=== PATIENT | female | born 1940 | race Caucasian/White ===

== ENCOUNTER 2025-03-12 12:46 | Emergency (ER) | payer MEDICARE, OTHER, SELFPAY ==
[2025-03-12 13:08] VITALS: BP 150/69; PULSE 64; RESP 17; TEMP 36.9; O2SAT 98; BMI 20.3
--- NOTE | 2025-03-12 14:15 | ED_ITS ---
HPI - Back Pain/Injury <Patricia Shen PA-C - Last Filed: 03/12/25 18:28> General Chief Complaint: Back Pain/Injury Stated Complaint: low back pain Time Seen by Provider: 03/12/25 13:21 Source: patient and other History of Present Illness HPI Narrative: 84-year-old female with no reported past medical history presents to the ED with several months of lower back pain. Patient states that the pain got exacerbated about a month ago when she was decorating the inside and outside of her house for Halloween. No trauma. Patient states that she has been lying in bed with a heating pad for relief. Patient states that when she is lying down, she is pain-free. Moving around it has been most painful for her. No fever, chills, chest pain, shortness of breath, vomiting, abdominal pain, dysuria, lightheadedness, dizziness, syncope. Patient does endorse anorexia for the last few days, states that she has been eating much lesser than normal. States that her appetite is very poor. Patient is accompanied by her neighbor, who states that patient does seem a little bit more confused than baseline over the last few days. Patient's neighbor does state that patient has had some cognitive decline and forgetfulness at baseline. Related Data Previous Rx's ?Medication ?Instructions ?Recorded cefpodoxime 200 mg tablet 200 mg PO BID 10 days #20 ta bs 03/12/25 cyclobenzaprine 10 mg tablet 10 mg PO TID PRN muscle s pasm #30 03/12/25 tabs Allergies Allergy/AdvReac Type Severity Reaction Status Date / Time iodine Allergy 30 years Verified 03/12/25 13:08 ago, doesn't remember Review of Systems <Patricia Shen PA-C - Last Filed: 03/12/25 18:28> Constitutional Constitutional: Denies chills, Denies fatigue, Denies fever(s), Denies frequent falls, Denies lethargy and Denies weakness Eyes Eyes: Denies change in vision, Denies eye discharge, Denies irritation and Denies loss of vision ENT Ears, Nose, Mouth, and Throat: Denies change in voice, Denies dizziness, Denies neck pain, Denies sore throat and Denies throat swelling Cardiovascular Cardiovascular: Denies chest pain, Denies irregular heart rhythm, Denies lightheadedness, Denies palpitations, Denies dyspnea, Denies dyspnea on exertion and Denies orthopnea Respiratory Respiratory: Denies cough, Denies dyspnea, Denies dyspnea on exertion and Denies wheezing Gastrointestinal Gastrointestinal: Denies abdominal pain, Denies change in bowel habits, Denies diarrhea, Denies nausea and Denies vomiting Musculoskeletal Musculoskeletal: Reports back pain, Denies neck pain and Denies numbness Integumentary/Breasts Skin/Breast: Denies pruritus, Denies erythema, Denies rash and Denies wounds Neurologic Neurologic: Denies behavioral changes, Denies confusion, Denies dizziness, Denies frequent falls, Denies loss of vision, Denies numbness and Denies weakness Psychiatric Psychiatric: Denies anxiety, Denies behavioral changes, Denies confusion, Denies depression, Denies homicidal ideation and Denies suicidal ideation Endocrine Endocrine: Denies fatigue, Denies flushing and Denies palpitations Hematologic/Lymphatic Hematologic/Lymphatic: Denies easy bruising Allergic/Immunologic Allergic/Immunologic: Denies urticaria, Denies throat swelling and Denies wheezing Patient History <Patricia Shen PA-C - Last Filed: 03/12/25 18:28> Social History Smoking Status: Never smoker Smoking Status: Never smoker Exam <Patricia Shen PA-C - Last Filed: 03/12/25 18:28> Narrative Exam Narrative: Const General:?cooperative, healthy appearing and comfortable [facility] Head:?normal to inspection Ears:?hearing grossly normal bilaterally Nose:?external nose normal Face and sinus:?normal facial exam and sinuses nontender Mouth:?oral mucosae normal Throat:?posterior oropharynx normal Eyes General:?appearance normal, both eyes and all related structures Neck Neck:?normal visual inspection and no lymphadenopathy noted Resp Effort & Inspection:?normal respiratory effort Auscultation:?clear to auscultation bilaterally Cardio Rate:?regular rate Rhythm:?regular rhythm Musculoskeletal No midline tenderness to palpation. No paraspinal tenderness to palpation. Gait is normal. Strength and sensation is intact. Neurovascularly intact. Neuro General:?patient alert, patient awake and patient oriented x3 Initial Vital Signs Initial Vital Signs: Vital Signs Temperature 98.5 F 03/12/25 13:08 Pulse Rate 64 03/12/25 13:08 Respiratory Rate 17 03/12/25 13:08 Blood Pressure 150/69 H 03/12/25 13:08 Pulse Oximetry 98 03/12/25 13:08 Oxygen Delivery Method Room Air 03/12/25 13:08 <Becki Martinez DO - Last Filed: 03/12/25 23:28> Initial Vital Signs Initial Vital Signs: Vital Signs Temperature 98.5 F 03/12/25 13:08 Pulse Rate 64 03/12/25 13:08 Respiratory Rate 17 03/12/25 13:08 Blood Pressure 150/69 H 03/12/25 13:08 Pulse Oximetry 98 03/12/25 13:08 Oxygen Delivery Method Room Air 03/12/25 13:08 Course <Patricia Shen PA-C - Last Filed: 03/12/25 18:28> Orders Ordered: ED Orders 03/12/25 14:44 XR lumbar spine 2-3V Stat XR sacrum coccyx min 2V Stat 03/12/25 15:47 CBC Auto Diff [Complete Blood Count AUTO DIFF] Stat CMP [Comprehensive Metabolic Panel] Stat Lipase Stat 03/12/25 17:10 Urinalysis and Microscopic Stat Urine Culture Stat 03/12/25 17:32 EKG-12 Lead Stat Vital Signs Vital signs: Vital Signs - 8 hr 03/12/25 17:26 03/12/25 18:56 Temperature 99.2 F Pulse Rate 58 L 66 Respiratory Rate 18 18 Blood Pressure 168/73 H 162/68 H Pulse Oximetry 97 98 Oxygen Delivery Method Room Air Room Air <Becki Martinez DO - Last Filed: 03/12/25 23:28> Orders Ordered: ED Orders 03/12/25 14:44 XR lumbar spine 2-3V Stat XR sacrum coccyx min 2V Stat 03/12/25 15:47 CBC Auto Diff [Complete Blood Count AUTO DIFF] Stat CMP [Comprehensive Metabolic Panel] Stat Lipase Stat 03/12/25 17:10 Urinalysis and Microscopic Stat Urine Culture Stat 03/12/25 17:32 EKG-12 Lead Stat Vital Signs Vital signs: Vital Signs - 8 hr 03/12/25 17:26 03/12/25 18:56 Temperature 99.2 F Pulse Rate 58 L 66 Respiratory Rate 18 18 Blood Pressure 168/73 H 162/68 H Pulse Oximetry 97 98 Oxygen Delivery Method Room Air Room Air MDM - Back Pain/Injury <Patricia hSen PA-C - Last Filed: 03/12/25 18:28> Lab Data 03/12/25 15:47 03/12/25 15:47 Labs: Lab Results 03/12/25 03/12/25 Range/Units 15:47 17:10 WBC 7.5 (4.5-11.0) X10^3/uL RBC 4.12 (4.0-5.2) X10^6/uL Hgb 12.3 (12.0-16.0) g/dL Hct 36.5 (36-46) % MCV 88.5 (80-100) fL MCH 29.8 (26-34) PG MCHC 33.6 (30-36) % RDW 13.6 (11.6-14.8) % Plt Count 231 (150-400) X10^3/uL Neut % (Auto) 73.6 (50-75) % Lymph % (Auto) 18.1 L (25-40) % [place] % (Auto) 7.1 (3-14) % Eos % (Auto) 0.8 L (2-4) % Baso % (Auto) 0.4 (0-2) % Neut # (Auto) 5500 (2450-4675) /uL Lymph # (Auto) 1400 (0961-3196) /uL [place] # (Auto) 500 (0-900) /uL Eos # (Auto) 100 (0-450) /uL Baso # (Auto) 0 (0-100) /uL Sodium 140 (137-145) mmol/L Potassium 4.2 (3.4-5.1) mmol/L Chloride 108 H (98-107) mmol/L Carbon Dioxide 26 (22-32) mmol/L BUN 21 H (7-17) mg/dL Creatinine 1.14 H (0.52-1.04) mg/dL Estimated GFR 47 L (>60) mL/min BUN/Creatinine Ratio 18.4 (6-22) Glucose 103 H (70-99) mg/dL Calcium 9.8 (8.4-10.2) mg/dL Total Bilirubin 0.2 (0.2-1.3) mg/dL AST 22 (14-36) IU/L ALT 12 (<35) IU/L Alkaline Phosphatase 70 (38-126) U/L Total Protein 7.1 (6.3-8.2) g/dL Albumin 4.1 (3.5-5.0) g/dL Globulin 3.0 (1.7-4.1) g/dL Albumin/Globulin Ratio 1.4 (1.0-2.8) Lipase 42 (23-300) U/L Urine Color Yellow Urine Appearance Clear Urine pH 5.5 (4.5-8.0) Ur Specific [place] >=1.030 H (1.000-1.035) Urine Protein Negative (Negative) Urine Glucose (UA) Negative (Negative) g/dL Urine Ketones Trace H (NEGATIVE) Urine Occult Blood Negative (Negative) Urine Nitrate Negative (Negative) Urine Bilirubin Negative (NEGATIVE) Urine Urobilinogen 0.2 (0.2) E.U./dL Ur Leukocyte Esterase Trace H (NEGATIVE) Urine RBC None seen (0-5/HPF) Urine WBC 5-10/hpf H (0-5/HPF) Ur Squamous Epith Cells 10-30 /hpf H (0-5/HPF) Amorphous Sediment 1+ Urine Bacteria Many (>30) H (None) Urine Mucus 1+ H (Negative) Ur Culture Indicated? Specimen cultured Vol Urine Centrifuged 10ml (spun) MDM Narrative Medical decision making narrative: 84-year-old female with no reported past medical history presents to the ED with several months of lower back pain. Patient expresses the desire to obtain x- rays since she has had no x-rays for her back. X-rays of the lumbar spine, sacrum and coccyx were obtained which showed no acute bony abnormalities. Degenerative changes noted. Obtained baseline labs and UA. UA positive for a UTI. Labs with elevated creatinine at 1.14, decreased GFR at 47. Likely chronic. Discussed findings with patient, patient's neighbor as well as patient's daughter was on the phone. Antibiotics and muscle relaxant were prescribed. Recommend follow-up with PCP to investigate other findings. ED return precautions discussed. Patient and patient's neighbor verbalized understanding. Medical records reviewed: Yes <Becki Martinez, DO - Last Filed: 03/12/25 23:28> Lab Data Labs: Lab Results 03/12/25 03/12/25 Range/Units 15:47 17:10 WBC 7.5 (4.5-11.0) X10^3/uL RBC 4.12 (4.0-5.2) X10^6/uL Hgb 12.3 (12.0-16.0) g/dL Hct 36.5 (36-46) % MCV 88.5 (80-100) fL MCH 29.8 (26-34) PG MCHC 33.6 (30-36) % RDW 13.6 (11.6-14.8) % Plt Count 231 (150-400) X10^3/uL Neut % (Auto) 73.6 (50-75) % Lymph % (Auto) 18.1 L (25-40) % [place] % (Auto) 7.1 (3-14) % Eos % (Auto) 0.8 L (2-4) % Baso % (Auto) 0.4 (0-2) % Neut # (Auto) 5500 (6044-1918) /uL Lymph # (Auto) 1400 (1635-3077) /uL [place] # (Auto) 500 (0-900) /uL Eos # (Auto) 100 (0-450) /uL Baso # (Auto) 0 (0-100) /uL Sodium 140 (137-145) mmol/L Potassium 4.2 (3.4-5.1) mmol/L Chloride 108 H (98-107) mmol/L Carbon Dioxide 26 (22-32) mmol/L BUN 21 H (7-17) mg/dL Creatinine 1.14 H (0.52-1.04) mg/dL Estimated GFR 47 L (>60) mL/min BUN/Creatinine Ratio 18.4 (6-22) Glucose 103 H (70-99) mg/dL Calcium 9.8 (8.4-10.2) mg/dL Total Bilirubin 0.2 (0.2-1.3) mg/dL AST 22 (14-36) IU/L ALT 12 (<35) IU/L Alkaline Phosphatase 70 (38-126) U/L Total Protein 7.1 (6.3-8.2) g/dL Albumin 4.1 (3.5-5.0) g/dL Globulin 3.0 (1.7-4.1) g/dL Albumin/Globulin Ratio 1.4 (1.0-2.8) Lipase 42 (23-300) U/L Urine Color Yellow Urine Appearance Clear Urine pH 5.5 (4.5-8.0) Ur Specific [place] >=1.030 H (1.000-1.035) Urine Protein Negative (Negative) Urine Glucose (UA) Negative (Negative) g/dL Urine Ketones Trace H (NEGATIVE) Urine Occult Blood Negative (Negative) Urine Nitrate Negative (Negative) Urine Bilirubin Negative (NEGATIVE) Urine Urobilinogen 0.2 (0.2) E.U./dL Ur Leukocyte Esterase Trace H (NEGATIVE) Urine RBC None seen (0-5/HPF) Urine WBC 5-10/hpf H (0-5/HPF) Ur Squamous Epith Cells 10-30 /hpf H (0-5/HPF) Amorphous Sediment 1+ Urine Bacteria Many (>30) H (None) Urine Mucus 1+ H (Negative) Ur Culture Indicated? Specimen cultured Vol Urine Centrifuged 10ml (spun) Discharge Plan Departure Patient Disposition: Home Clinical Impression: UTI (urinary tract infection) Qualifiers: Urinary tract infection type: site unspecified Hematuria presence: without hematuria Qualified Code(s): N39.0 - Urinary tract infection, site not specified Lower back pain Qualifiers: Chronicity: chronic Back pain laterality: left Sciatica presence: without sciatica Qualified Code(s): M54.50 - Low back pain, unspecified Instructions: DI for Low Back Pain, DI for Urinary Tract Infection (UTI) Activity Restrictions/Additional Instructions: You were evaluated in the emergency department today for lower back pain. Your x-rays show degenerative changes but no fractures or dislocations. The urine does show a urinary tract infection, for which you are being prescribed antibiotics. Your back pain could either be due to a musculoskeletal sprain/strain of your lower back muscles, or a disc injury, or the UTI. 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 It is important for you to follow-up with your primary care provider to further evaluate these findings. Return to the ED if you have worsening symptoms. Prescriptions: New cefpodoxime 200 mg tablet 200 mg PO BID 10 Days Qty: 20 0RF Rx Instructions: must administer with a meal/food cyclobenzaprine 10 mg tablet 10 mg PO TID PRN (Reason: muscle spasm) Qty: 30 0RF Stand Alone Forms: Patient Portal/API ED Sign-out <Becki Martinez DO - Last Filed: 03/12/25 23:28> Cosign ED Attending Cosignature Attestation: I was immediately available in the department for consultation.
--- NOTE | 2025-03-12 14:44 | DI.RAD.S_ITS ---
PROCEDURE: XR SACRUM COCCYX MIN 2V INDICATIONS: Low back pain TECHNIQUE: 3 views of the sacrum and coccyx acquired. COMPARISON: None. FINDINGS: Bones: No fractures or dislocations. Degenerative changes of the sacroiliac joints. No suspicious bony lesions. Soft tissues: Visualized bowel gas pattern is normal. No suspicious soft tissue densities. IMPRESSION: Degenerative changes of the sacroiliac joints. No acute osseous abnormalities. Dictated by: Hany Byrne M.D. on 03/12/2025 at 15:33 Approved by: Hany Byrne M.D. on 03/12/2025 at 15:34
--- NOTE | 2025-03-12 14:44 | DI.RAD.S_ITS ---
PROCEDURE: XR LUMBAR SPINE 2-3V INDICATIONS: Low back pain TECHNIQUE: 3 views of the lumbar spine were acquired. COMPARISON: None. FINDINGS: Bones: Wall 5 [id number] vertebrae are present. S-shaped scoliotic curvature. Grade 1 anterolisthesis of L5 on S1. Decreased osseous mineralization. No vertebral body compression fractures. No suspicious bony lesions. There is multilevel facet arthropathy, worse at L4-5 and L5-S1. Multilevel disc height loss with degenerative endplate changes and spurring is present. Soft tissues: Overlying bowel gas pattern is normal. No suspicious soft tissue calcifications. IMPRESSION: Multilevel degenerative changes of the lumbar spine with scoliotic curvature. No acute osseous abnormalities. Dictated by: Hany Byrne M.D. on 03/12/2025 at 15:32 Approved by: Hany Byrne M.D. on 03/12/2025 at 15:33
[2025-03-12 16:00] LABS: Add Manual Diff / Slide Review NO; Hematocrit 36.5 % (36-46); Hemoglobin 12.3 g/dL (12.0-16.0); Lymphocytes Absolute Auto 1400 /uL (1100-4500); Mean Corpuscular HGB Conc 33.6 % (30-36); Mean Corpuscular Hemoglobin 29.8 PG (26-34); Mean Corpuscular Volume 88.5 fL (80-100); Platelet Count 231 X10^3/uL (150-400)
[2025-03-12 16:13] LABS: Alanine Aminotransferase 12 IU/L (<35); Albumin 4.1 g/dL (3.5-5.0); Albumin Globulin Ratio 1.4 (1.0-2.8); Alkaline Phosphatase 70 U/L (38-126); Blood Urea Nitrogen 21 mg/dL (7-17); Calcium 9.8 mg/dL (8.4-10.2); Carbon Dioxide 26 mmol/L (22-32); Chloride 108 mmol/L (98-107); Estimated Glomerular Filt Rate 47 mL/min (>60); Globulin 3.0 g/dL (1.7-4.1); Glucose 103 mg/dL (70-99); HEMOLYSIS < 15 (0-50); Lipase 42 U/L (23-300); Potassium 4.2 mmol/L (3.4-5.1); Sodium 140 mmol/L (137-145); Total Protein 7.1 g/dL (6.3-8.2)
--- NOTE | 2025-03-12 17:19 | PC.NURSE ---
Pt was resting in recliner. This nurse woke pt to get a urine sample. Pt extremely unsteady on her feet, needed this nurse to walk her to and from the bathroom and help her stand off the toilet. ALEKSANDER Gomez notified.
[2025-03-12 17:25] LABS: Appearance Urine UA CLEAR; Bilirubin Urine UA NEGATIVE (NEGATIVE); Color Urine UA YELLOW; Glucose Urine UA NEGATIVE (Negative); Ketones Urine UA TRACE (NEGATIVE); Leukocyte Esterase Urine UA TRACE (NEGATIVE); Nitrite Urine UA NEGATIVE (Negative); Occult Blood Urine UA NEGATIVE (Negative); Protein Urine UA NEGATIVE (Negative); Specific Gravity Urine UA >=1.030 (1.000-1.035); Urobilinogen Urine UA 0.2 E.U./dL (0.2)
[2025-03-12 17:26] VITALS: BP 168/73; PULSE 58; RESP 18; O2SAT 97
[2025-03-12 17:27] LABS: pH Urine UA 5.5 (4.5-8.0)
[2025-03-12 17:35] LABS: Culture Indicated Urine Specimen Cultured
--- NOTE | 2025-03-12 17:55 | EKG_ITS ---
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
[2025-03-12 18:56] VITALS: BP 162/68; PULSE 66; RESP 18; TEMP 37.3; O2SAT 98
== END 2025-03-12 18:47 | disposition home or self-care (01) ==
PROVIDERS: Emergency Provider Student in an Organized Health Care Education/Training Program
DX: N39.0 Urinary tract infection, site not specified (principal); M54.50 Low back pain, unspecified
CPT/HCPCS: 36415; 72100; 72220; 80053; 81001; 83690; 85025; 87086; 93005; 99282; 99284

== ENCOUNTER 2025-03-16 04:43 | Emergency (ER) | payer MEDICARE, OTHER, SELFPAY ==
[2025-03-16] VITALS (10 sets, daily range): BP systolic 119–136; BP diastolic 58–86; PULSE 57–69; RESP 12–27; TEMP 36.4; O2SAT 94–99; BMI 20.6
--- NOTE | 2025-03-16 04:55 | ED_ITS ---
HPI - General Adult General Chief complaint: Syncope Stated complaint: Kidney infection, N, weakness Time Seen by Provider: 03/16/25 04:53 History of Present Illness HPI narrative: 84-year-old female has ongoing left lower back pain, worsened recently when putting up Halloween decorations, seen here 03/12/2025 for the same complaint, lumbar x-rays done, no other imaging. Given prescription for cyclobenzaprine which is not really helping. Suspected to have had urine infection at that time and was started on cefpodoxime antibiotic. Persisting pain, no new injury. No nausea or vomiting. No dysuria frequency of urination. No history of kidney stones recalled. She has had colitis in the past. Denies anterior discomfort but does have left back pain. Pain is worse with movements bending and twisting. No pain radiating to leg. Related Data Previous Rx's ?Medication ?Instructions ?Recorded cefpodoxime 200 mg tablet 200 mg PO BID 10 days #20 ta bs 03/12/25 cyclobenzaprine 10 mg tablet 10 mg PO TID PRN muscle s pasm #30 03/12/25 tabs Allergies Allergy/AdvReac Type Severity Reaction Status Date / Time iodine Allergy 30 years Verified 03/12/25 13:08 ago, doesn't remember Patient History Social History Smoking Status: Never smoker Exam Narrative Exam Narrative: GENERAL: Well-developed patient, in mild distress. HEAD: Atraumatic. Normocephalic. EYES: Pupils equal round and reactive. Extraocular motions intact. No scleral icterus. No injection or drainage. ENT: Nose without bleeding, purulent drainage. Throat without erythema, tonsillar hypertrophy or exudate. Airway patent. NECK: Trachea midline. Non tender CARDIOVASCULAR: Regular rate and rhythm without murmurs, gallops, or rubs. RESPIRATORY: Clear to auscultation. Breath sounds equal bilaterally. No wheezes, rales, or rhonchi. GASTROINTESTINAL: Abdomen soft, non-tender, nondistended. EXTREMITIES: No edema or joint tenderness. BACK: Nontender without deformity or crepitance. No flank tenderness. No tenderness to midline low back, nor along paraspinal musculature, no vesicles or skin rash changes noted. NEURO: AOx3. Motor functions grossly nonfocal. SKIN: No rash or erythema of visible areas Initial Vital Signs Initial Vital Signs: Vital Signs Temperature 97.6 F 03/16/25 05:01 Pulse Rate 68 03/16/25 05:01 Respiratory Rate 16 03/16/25 05:01 Blood Pressure 125/83 03/16/25 05:01 Pulse Oximetry 98 03/16/25 05:01 Oxygen Delivery Method Room Air 03/16/25 05:01 Course Orders Ordered: ED Orders 03/16/25 04:54 CT abdomen pelvis wo con Stat Ictotest Urine Stat Urinalysis and Microscopic Stat 03/16/25 05:08 Complete Blood Count AUTO DIFF Stat Comprehensive Metabolic Panel Stat Lipase Stat Discontinued Medications Morphine Sulfate (Morphine 4 Mg/Ml Inj) 2 mg IV NOW ONE Stop: 03/16/25 05:03 Last Admin: 03/16/25 05:17 Dose: 2 mg Documented By: DANY Ondansetron HCl (Ondansetron 4 Mg/2 Ml Inj) 4 mg IV NOW ONE Stop: 03/16/25 05:16 Last Admin: 03/16/25 05:17 Dose: 4 mg Documented By: DANY Vital Signs Vital signs: Vital Signs - 8 hr 03/16/25 05:01 03/16/25 05:07 03/16/25 05:08 Temperature 97.6 F Pulse Rate 68 64 Respiratory Rate 16 Blood Pressure 125/83 131/86 Pulse Oximetry 98 94 Oxygen Delivery Method Room Air Room Air 03/16/25 05:08 03/16/25 05:36 03/16/25 05:39 Temperature Pulse Rate 69 60 Respiratory Rate Blood Pressure 127/62 Pulse Oximetry 98 97 Oxygen Delivery Method Room Air Room Air 03/16/25 05:39 03/16/25 06:00 03/16/25 06:00 Temperature Pulse Rate 58 L 58 L Respiratory Rate 12 17 Blood Pressure 136/63 Pulse Oximetry 99 96 Oxygen Delivery Method Room Air Room Air 03/16/25 06:30 03/16/25 06:30 03/16/25 07:00 Temperature Pulse Rate 58 L Respiratory Rate 27 H Blood Pressure 127/61 119/58 L Pulse Oximetry 98 Oxygen Delivery Method 03/16/25 07:00 03/16/25 07:30 03/16/25 07:31 Temperature Pulse Rate 57 L 63 Respiratory Rate 24 Blood Pressure 125/58 L Pulse Oximetry 98 Oxygen Delivery Method 03/16/25 07:31 Temperature Pulse Rate 62 Respiratory Rate Blood Pressure Pulse Oximetry Oxygen Delivery Method Medical Decision Making Lab Data Lab results reviewed: Yes I reviewed the patient's lab results. Lab results narrative: White blood cell count 8200, hemoglobin 12.9, platelets adequate. Glucose 119. BUN 17 with slight elevation creatinine 1.23. Serum CO2 and potassium normal. Sodium 135 slight low. Liver functions and lipase normal. Urinalysis not obviously infected. 03/16/25 05:08 03/16/25 05:08 Labs: Lab Results 03/16/25 03/16/25 Range/Units 04:54 05:08 WBC 8.2 (4.5-11.0) X10^3/uL RBC 4.21 (4.0-5.2) X10^6/uL Hgb 12.9 (12.0-16.0) g/dL Hct 37.4 (36-46) % MCV 88.7 (80-100) fL MCH 30.5 (26-34) PG MCHC 34.4 (30-36) % RDW 13.7 (11.6-14.8) % Plt Count 229 (150-400) X10^3/uL Neut % (Auto) 66.3 (50-75) % Lymph % (Auto) 23.5 L (25-40) % Carter % (Auto) 7.9 (3-14) % Eos % (Auto) 2.0 (2-4) % Baso % (Auto) 0.3 (0-2) % Neut # (Auto) 5500 (2100-8447) /uL Lymph # (Auto) 1900 (0068-4680) /uL Carter # (Auto) 700 (0-900) /uL Eos # (Auto) 200 (0-450) /uL Baso # (Auto) 0 (0-100) /uL Sodium 135 L (137-145) mmol/L Potassium 3.9 (3.4-5.1) mmol/L Chloride 102 (98-107) mmol/L Carbon Dioxide 27 (22-32) mmol/L BUN 17 (7-17) mg/dL Creatinine 1.23 H (0.52-1.04) mg/dL Estimated GFR 43 L (>60) mL/min BUN/Creatinine Ratio 13.8 (6-22) Glucose 119 H (70-99) mg/dL Calcium 9.4 (8.4-10.2) mg/dL Total Bilirubin 0.3 (0.2-1.3) mg/dL AST 27 (14-36) IU/L ALT 14 (<35) IU/L Alkaline Phosphatase 77 (38-126) U/L Total Protein 7.3 (6.3-8.2) g/dL Albumin 4.2 (3.5-5.0) g/dL Globulin 3.1 (1.7-4.1) g/dL Albumin/Globulin Ratio 1.4 (1.0-2.8) Lipase 51 (23-300) U/L Urine Color Dark yellow Urine Appearance Sl cloudy Urine pH 5.5 (4.5-8.0) Ur Specific [place] >=1.030 H (1.000-1.035) Urine Protein 1+ H (Negative) Urine Glucose (UA) Negative (Negative) g/dL Urine Ketones 1+ H (NEGATIVE) Urine Occult Blood Trace-intact (Negative) Urine Nitrate Negative (Negative) Urine Bilirubin 1+ H (NEGATIVE) Ur Bilirubin Confirm Negative (Negative) Urine Urobilinogen 0.2 (0.2) E.U./dL Ur Leukocyte Esterase Negative (NEGATIVE) Urine RBC 0-1/hpf (0-5/HPF) Urine WBC None seen (0-5/HPF) Ur Squamous Epith Cells 1-5 /hpf D (0-5/HPF) Urine Bacteria Occasional (0-1) (None) Hyaline Casts 10-30/lpf (None) Ur Culture Indicated? Cult not indicated Vol Urine Centrifuged Low vol <10ml (spun) A Imaging Data CT scan - abdomen/pelvis: Radiologist's Impression: [place] [address] CT Scan Report Signed Patient: Lori Armenta MR#: [id number] : 1940 Acct:[id number] Age/Sex: 84 / F Date of Service: 03/16/25 Loc: ED Accession Number: [id number] Procedure: CT abdomen pelvis wo con Ordering Provider: West Martinez MD PROCEDURE: CT ABDOMEN PELVIS WO CON INDICATIONS: back pain TECHNIQUE: CT of the abdomen and pelvis was obtained without intravenous contrast. Coronal and sagittal reformats were performed. For radiation dose reduction, the following was used: automated exposure control, adjustment of mA and/or kV according to patient size. COMPARISON: None. FINDINGS: Image quality: Diagnostic. Lower Chest: No significant findings. ABDOMEN: Liver: No contour-deforming mass. Gallbladder: Calcified gallstones without gallbladder wall thickening. Biliary ducts: No biliary dilation. Pancreas: No ductal dilation. Spleen: Size is within normal limits. Adrenal Glands: No adrenal nodules. Kidneys and Ureters: No hydronephrosis. No contour-deforming mass. Stomach and Bowel: Small hiatal hernia. Normal colonic caliber, without significant wall thickening. Diverticulosis without evidence of acute diverticulitis. Peritoneum: No abnormal intraperitoneal fluid. No free air. Ventral Wall: No significant hernia. Abdominal Nodes: No retroperitoneal or mesenteric adenopathy by size criteria. Vessels: Aorta and inferior vena cava are normal in size. PELVIS: Pelvic Organs: Endometrium is thickened at 11 mm. Right ovarian cyst measuring 2.4 cm. . Bladder: Unremarkable. Pelvic Nodes: No enlarged lymph nodes. Miscellaneous: No inguinal hernias are seen. Bones: No aggressive osseous abnormality. Degenerative changes of the spine. Decreased osseous mineralization. Mild S-shaped scoliotic curvature. IMPRESSION: 1. No acute findings within the abdomen or pelvis. 2. Cholelithiasis without gallbladder inflammation. 3. Diverticulosis without evidence of acute diverticulitis. 4. Endometrium is thickened at 11 mm. Right ovarian cyst measuring 2.4 cm. Recommend nonurgent pelvic ultrasound. Dictated by: Hany Byrne M.D. on 03/16/2025 at 6:43 Approved by: Hany Byrne M.D. on 03/16/2025 at 6:48 [facility] Narrative Medical decision making narrative: 84-year-old female taking cefpodoxime antibiotic for possible UTI, prescribed cyclobenzaprine for low back pain, has ongoing left-sided low back pain refractory to above treatments. Afebrile on triage, sirs screen negative. No tenderness CVA region. No tenderness midline or paraspinal musculature. No vesicles or rash skin changes. DDx consider musculoskeletal, seems rather low for UTI/pyelonephritis, seems rather low for ureteral stone colic, consider referred pain from recurrence of diverticulitis though no anterior abdominal pain or tenderness on exam. Labs pending. CT abdomen and pelvis noncontrast study ordered. IV morphine. Lab data: White blood cell count 8200, hemoglobin 12.9, platelets adequate. Glucose 119. BUN 17 with slight elevation creatinine 1.23. Serum CO2 and potassium normal. Sodium 135 slight low. Liver functions and lipase normal. Urinalysis not obviously infected. CT abdomen and pelvis, shows diverticulosis without diverticulitis, cholelithiasis without cholecystitis changes, right ovarian cyst 2.4 cm in postmenopausal elderly woman. See radiology report. CT report results discussed. DC home, keep same Vantin abx and Flexeril Rx for now. Fu with PCP this next [place] Discharge Plan Departure Patient Disposition: Home Clinical Impression: Abdominal pain, Cyst of right ovary Activity Restrictions/Additional Instructions: Left low back pain of unclear etiology. Currently on antibiotic cefpodoxime for possible urinary tract infection. Urinalysis today not very impressive but could already be improving on treatment, continue your antibiotic as prescribed. Continue taking your muscle relaxants cyclobenzaprine in case of musculoskeletal muscle strain cause of your symptoms. CT abdomen and pelvis shows gallstones but no acute inflamed gallbladder changes, shows diverticulosis of the colon but no diverticulitis acute inflamed appearance, incidentally shows right ovarian cyst which is not very large but she would not be present postmenopausal ear advanced age. Pelvic ultrasound as an outpatient for now, to make sure this is not a cancerous or otherwise concerning ovarian mass. Continue taking your muscle relaxant medication and your antibiotics for now. Follow up with your regular doctor early next week. Return to this/nearest emergency department for any change worsening symptoms or any concerns prior Prescriptions: No Action cefpodoxime 200 mg tablet 200 mg PO BID 10 Days Qty: 20 0RF Rx Instructions: must administer with a meal/food cyclobenzaprine 10 mg tablet 10 mg PO TID PRN (Reason: muscle spasm) Qty: 30 0RF Stand Alone Forms: Patient Portal/API
[2025-03-16 04:59] LABS: Bilirubin Urine UA 1+ (NEGATIVE); Glucose Urine UA NEGATIVE (Negative); Ketones Urine UA 1+ (NEGATIVE); Leukocyte Esterase Urine UA NEGATIVE (NEGATIVE); Nitrite Urine UA NEGATIVE (Negative); Occult Blood Urine UA TRACE-INTACT (Negative); Protein Urine UA 1+ (Negative); Specific Gravity Urine UA >=1.030 (1.000-1.035); Urobilinogen Urine UA 0.2 E.U./dL (0.2)
[2025-03-16 05:00] LABS: pH Urine UA 5.5 (4.5-8.0)
[2025-03-16 05:01] LABS: Appearance Urine UA SL CLOUDY; Color Urine UA Dark Yellow
[2025-03-16 05:06] LABS: Ictotest Urine Negative (Negative)
[2025-03-16 05:07] LABS: Culture Indicated Urine Cult Not Indicated
[2025-03-16] MEDS: ONDANSETRON 4 MG/2 ML INJ IV (05:17)
[2025-03-16] MEDS: MORPHINE 4 MG/ML INJ 2 MG IV (05:17)
[2025-03-16 05:18] LABS: Add Manual Diff / Slide Review NO; Hematocrit 37.4 % (36-46); Hemoglobin 12.9 g/dL (12.0-16.0); Lymphocytes Absolute Auto 1900 /uL (1100-4500); Mean Corpuscular HGB Conc 34.4 % (30-36); Mean Corpuscular Hemoglobin 30.5 PG (26-34); Mean Corpuscular Volume 88.7 fL (80-100); Platelet Count 229 X10^3/uL (150-400)
--- NOTE | 2025-03-16 05:23 | PC.NURSE ---
Pt to imaging via ED stretcher with technical analyst
[2025-03-16 05:34] LABS: Alanine Aminotransferase 14 IU/L (<35); Albumin 4.2 g/dL (3.5-5.0); Albumin Globulin Ratio 1.4 (1.0-2.8); Alkaline Phosphatase 77 U/L (38-126); Blood Urea Nitrogen 17 mg/dL (7-17); Calcium 9.4 mg/dL (8.4-10.2); Carbon Dioxide 27 mmol/L (22-32); Chloride 102 mmol/L (98-107); Estimated Glomerular Filt Rate 43 mL/min (>60); Globulin 3.1 g/dL (1.7-4.1); Glucose 119 mg/dL (70-99); HEMOLYSIS < 15 (0-50); Lipase 51 U/L (23-300); Potassium 3.9 mmol/L (3.4-5.1); Sodium 135 mmol/L (137-145); Total Protein 7.3 g/dL (6.3-8.2)
== END 2025-03-16 07:50 | disposition home or self-care (01) ==
PROVIDERS: Emergency Provider Emergency Medicine
DX: M54.50 Low back pain, unspecified (principal); N83.201 Unspecified ovarian cyst, right side
CPT/HCPCS: 36415; 74176; 80053; 81001; 83690; 85025; 96374; 96375; 99284; J2272; J2405